=== PATIENT | male | born 1955 | race Caucasian/White ===

== ENCOUNTER 2024-07-07 12:10 | Emergency (ER) | payer OTHER ==
[2024-07-07] MEDS: Iopamidol 755 Mg/ML 100 ML Bottle IVPUSH ONE (12:29)
[2024-07-07 12:37] LABS: HEMATOCRIT 30.2 % (40.0-54.0); HEMOGLOBIN 9.8 g/dL (14.0-18.0); MEAN CORPUSCULAR HEMOGLOBIN 27.2 pg (27.0-34.0); MEAN CORPUSCULAR HGB CONC 32.5 g/dL (33.0-35.0); MEAN CORPUSCULAR VOLUME 83.9 fL (80-100); PLATELET COUNT,PLT 237 10^3/uL (150-450); WHITE BLOOD CELL COUNT,WBC 15.5 10^3/uL (5.0-10.0)
[2024-07-07 12:51] LABS: PROTHROMBIN TIME 29.3 SEC (9.0-12.0); PTT,PARTIAL THROMBOPLSTIN TIME 53.7 SEC (22.0-34.0)
[2024-07-07 12:55] LABS: ALBUMIN 2.6 g/dL (3.4-5.0); BILIRUBIN TOTAL 1.2 mg/dL (0.2-1.0); BUN/CREATININE RATIO 16.4 (No establ ref range); CALCIUM 9.3 mg/dL (8.5-10.1); CREATININE 1.89 mg/dL (0.70-1.30); EST CRCL DRUG DOSING (CG) 41.58 mL/min; MAGNESIUM 1.3 mg/dL (1.8-2.4); PROTEIN TOTAL,TP 8.7 g/dL (6.4-8.2)
[2024-07-07 12:58] LABS: A/G RATIO 0.43
[2024-07-07 13:07] LABS: O2 DELIVERY DEVICE ROOM AIR
[2024-07-07 13:08] LABS: BASE EXCESS VENOUS -4.1 mmol/l ((-2)-(+3)); BICARBONATE,VENOUS 17 mmol/l (19-25); O2 SATURATION VENOUS 26.8 % (60-80); PO2 VENOUS 19 mmHg (35-42)
[2024-07-07 13:09] LABS: PCO2 VENOUS 18 mmHg (41-51); PH,VENOUS 7.58 (7.31-7.41)
[2024-07-07 13:10] LABS: BAND PERCENT MAN 1 %; LYMPHOCYTES PERCENT MAN 9 % (20-50); MONOCYTES PERCENT MAN 3 % (2-8); SEG NEUTROPHILS PERCENT MAN 87 % (42-75)
[2024-07-07 13:27] LABS: APPEARANCE,URINE CLEAR (CLEAR); BILIRUBIN,URINE NEGATIVE (NEGATIVE); COLOR,URINE YELLOW (YELLOW); GLUCOSE,URINE 500 (NEGATIVE); KETONES,URINE NEGATIVE (NEGATIVE); LEUKOCYTE ESTERASE,URINE TRACE (NEGATIVE); NITRITE,URINE NEGATIVE (NEGATIVE); OCCULT BLOOD,URINE NEGATIVE (NEGATIVE); PH,URINE 6.5 (5.0-9.0); PROTEIN,URINE NEGATIVE (NEGATIVE); UROBILINOGEN,URINE 0.2 mg/dL (0.2-1.0)
[2024-07-07 13:43] LABS: BACTERIA,URINE FEW /HPF (0-FEW/HPF); EPITHELIAL CELLS,URINE RARE /HPF (NOT SEEN); MUCUS,URINE RARE /LPF (NOT SEEN); RBC,URINE 0-5 /HPF (0-5)
[2024-07-07 13:48] LABS: CORONAVIRUS COVID-19 NAA NEGATIVE (NEGATIVE); INFLUENZA A NAA NEGATIVE (NEGATIVE); INFLUENZA B NAA NEGATIVE (NEGATIVE)
[2024-07-07] MEDS: Magnesium Sulfate/Water 2 GM in Premix Bag 1 BAG IV ONE (13:57)
[2024-07-07] MEDS: cefTRIAXone 1 GM Vial IVPUSH ONE (13:57)
[2024-07-07] MEDS: Sodium Chloride 0.9% 500 ML IV ONE (13:57)
[2024-07-07] MEDS: fentaNYL 100 MCG/2 ML SDV IVPUSH ONE (14:24)
[2024-07-07] MEDS: Sodium Chloride 0.9% 10 ML Syringe FLUSH PRN (14:32)
[2024-07-07] MEDS ORDERED: Naloxone 2 MG/2 ML Syringe IVPUSH PRN (15:39)
[2024-07-07] MEDS: Morphine 2 MG/ML SYRINGE IVPUSH ONE (16:08)
[2024-07-07] MEDS: Ondansetron 4 MG/2 ML SDV ONE (16:10)
[2024-07-07] MEDS: Ondansetron 4 MG/2 ML SDV IVPUSH ONE (16:14)
[2024-07-07 16:49] VITALS: BP 115/65; PULSE 106
== END 2024-07-07 16:10 ==
LOC: DL.ED 12:10
DX: I63.89 Other cerebral infarction (principal); E87.1 Hypo-osmolality and hyponatremia; D72.825 Bandemia; R47.01 Aphasia; I25.10 Atherosclerotic heart disease of native coronary artery without angina pectoris; Z79.899 Other long term (current) drug therapy; Z79.82 Long term (current) use of aspirin; Z79.01 Long term (current) use of anticoagulants; Z95.1 Presence of aortocoronary bypass graft
CPT/HCPCS: 0240U; 36415; 70450; 70496; 70498; 71045; 80053; 81001; 82803; 82947; 83605; 83690; 83735; 83880; 84484; 85025; 85610; 85730; 87040; 87086; 93005; 93010; 96365; 96368; 96375; 99285; 99285-25; J0696; J2270; J2405; J3010; J3370; J3475; J3490; J7040; J7050; Q9967